=== PATIENT | female | born 1960 | race Caucasian/White ===

== ENCOUNTER 2022-04-13 10:46 | Outpatient (CLI) | payer OTHER, SELFPAY | END 2022-04-13 10:47 | disposition home or self-care (01) | LOC: LKVREF 04-19 10:08 | PROVIDERS: PCP Family Medicine; Visit Provider Nurse Practitioner Family | DX: R30.0 Dysuria (principal); R35.0 Frequency of micturition; N39.0 Urinary tract infection, site not specified | CPT/HCPCS: 87086; 87186 ==

== ENCOUNTER 2024-11-10 13:18 | Outpatient (CLI) | payer MEDICARE, BC, SELFPAY | END 2024-11-10 13:19 | disposition home or self-care (01) | LOC: NFLDREF 11-15 17:12 | PROVIDERS: PCP Family Medicine; Referring Provider Family Medicine; Visit Provider Nurse Practitioner Family | DX: R30.0 Dysuria (principal); N30.00 Acute cystitis without hematuria | CPT/HCPCS: 87086 ==

== ENCOUNTER 2025-01-05 18:04 | Outpatient (CLI) | payer MEDICARE, BC, SELFPAY | END 2025-01-05 18:05 | disposition home or self-care (01) | LOC: NFLDREF 01-08 03:24 | PROVIDERS: PCP Family Medicine; Referring Provider Family Medicine | DX: R30.0 Dysuria (principal); N39.0 Urinary tract infection, site not specified | CPT/HCPCS: 87086 ==

== ENCOUNTER 2025-02-07 10:33 | Outpatient (CLI) | payer MEDICARE, BC, SELFPAY | END 2025-02-07 10:34 | disposition home or self-care (01) | LOC: NFLDREF 02-10 04:21 | PROVIDERS: PCP Family Medicine; Referring Provider Family Medicine | DX: R35.0 Frequency of micturition (principal); R30.0 Dysuria | CPT/HCPCS: 87086 ==